=== PATIENT | female | born 1955 | race Caucasian/White ===

== ENCOUNTER 2017-11-03 16:25 | Emergency (ER) | payer BC ==
--- NOTE | 2017-11-03 17:56 | EDM.PDOC ---
ED HPI GENERAL MEDICAL PROBLEM - General Chief Complaint: General Stated Complaint: WITHDRAWALS FROM MEDICATION Time Seen by Provider: 11/03/17 17:16 - History of Present Illness INITIAL COMMENTS - FREE TEXT/NARRATIVE: HISTORY AND PHYSICAL: History of present illness: The patient is a 61-year-old female with a long-standing history of chronic back pain anxiety depression and medication overuse who recently had an admission at [facility] from October 13 to October 18 on their psychiatric unit for major depression and anxiety as well as benzodiazepine abuse and presents to our ER froylan saying that she needs to get medications for her anxiety to get her through the weekend so she can see her provider. The patient is already also been to another ER at [facility] on October 30 and was also not given any medications there. In my discussion with one of the providers at [facility] her discharge medications on October 18 included a closed in a topical Flexeril hydroxyzine and gabapentin and she was not given any tramadol or Xanax that she had come in on. The patient says that she "can't live like this" and that she needs something to help her with her anxiety and she has tried [id number] preparations. She is not having any other systemic complaints of chest pain shortness of breath vomiting or diarrhea. Review of systems: As per history of present illness and below otherwise all systems reviewed and negative. Past medical history: As per history of present illness and as reviewed below otherwise noncontributory. Surgical history: As per history of present illness and as reviewed below otherwise noncontributory. Social history: No reported history of drug or alcohol abuse. Family history: As per history of present illness and as reviewed below otherwise noncontributory. Physical exam: General: Well-developed well-nourished female who is nontoxic and vital signs are reviewed by me. She's not tremulous on my evaluation she does have the rapid speech went she is very adamant at making her point. She is not expressing any suicidal or homicidal ideation but says that she wants help with his anxiety. She has told the nurse and me different stories and even when they went into the room and told her that I knew the information from [facility] there are still some convolution of her story and manipulation of the conversation. HEENT: Atraumatic, normocephalic, negative for conjunctival pallor or scleral icterus, mucous membranes moist, throat clear, neck supple, nontender, trachea midline. Lungs: Clear to auscultation, breath sounds equal bilaterally, chest nontender. Heart: S1S2, regular rate and rhythm on my evaluation, is no overt murmur Abdomen: Soft, nondistended, nontender. NABS Pelvis: Deferred Genitourinary: Deferred. Rectal: Deferred. Extremities: Atraumatic, negative for cords or calf pain. Neurovascular unremarkable. Range of motion without defects or deficits Neuro: Awake, alert, oriented. Cranial nerves II through XII unremarkable. Cerebellum unremarkable. Motor and sensory unremarkable throughout. Exam nonfocal. Gait intact into the ED Diagnostics: [] Therapeutics: [] I did discuss with the patient none prescription approaches to her anxiety and she tells me that she has not connected with counseling at this time. I've offered her Benadryl IM which she declines and they've also talked about melatonin and other vitamin supplements and other non-medication ways to deal with her anxiety but she does not want to listen to my recommendations and says that nothing works. She says that she needs to get medications in order to get her through the weekend and that if I cannot help her she will go to [facility] in [place]. I recommended that she try to get local counseling as this will assist her in long-term management of this anxiety and give her tools for better adaptation and she seems for a closed to these suggestions. Impression: Generalized anxiety with history of same seeking medication refill stable Definitive disposition and diagnosis as appropriate pending reevaluation and review of above. - Related Data Allergies Allergy/AdvReac Type Severity Reaction Status Date / Time No Known Allergies Allergy Verified 11/03/17 17:16 Home Meds: Home Meds Aspirin 81 mg PO DAILY 11/03/17 [History] Escitalopram [Lexapro] 10 mg PO DAILY 11/03/17 [History] Gabapentin [Neurontin] 100 mg PO QID 11/03/17 [History] L.acidoph,Paracasei, B.lactis [Probiotic] 1 tab PO DAILY 11/03/17 [History] Melatonin 3 mg PO BEDTIME PRN 11/03/17 [History] Metoprolol Tartrate 25 mg PO BID 11/03/17 [History] Mirtazapine [Remeron] 15 mg PO BEDTIME 11/03/17 [History] Past Medical History Cardiovascular History: Reports: ND Psychiatric History: Reports: Anxiety - Infectious Disease History Infectious Disease History: Reports: Chicken Pox, Measles, Mumps - Past Surgical History GI Surgical History: Reports: Bariatric Procedure Social & Family History - Tobacco Use Smoking Status *Q: Never Smoker Second Hand Smoke Exposure: No - Alcohol Use Days Per Week of Alcohol Use: 0 - Recreational Drug Use Recreational Drug Use: No ED ROS GENERAL - Review of Systems Review Of Systems: ROS reveals no pertinent complaints other than HPI. ED EXAM, GENERAL - Physical Exam Exam: See Below (See dictation) Course - Vital Signs Last Recorded V/S: Last Vital Signs Temp 36.4 C 11/03/17 17:21 Pulse 104 H 11/03/17 17:21 Resp 20 11/03/17 17:21 BP 142/87 H 11/03/17 17:21 Pulse Ox 94 L 11/03/17 17:21 Departure - Departure Time of Disposition: 17:56 Disposition: Home, Self-Care 01 Condition: Good Clinical Impression: History of anxiety - Discharge Information Referrals: Sebastián Barber MD [Primary Care Provider] - Additional Instructions: The following information is given to patients seen in the emergency department who are being discharged to home. This information is to outline your options for follow-up care. We provide all patients seen in our emergency department with a follow-up referral. The need for follow-up, as well as the timing and circumstances, are variable depending upon the specifics of your emergency department visit. If you don't have a primary care physician on staff, we will provide you with a referral. We always advise you to contact your personal physician following an emergency department visit to inform them of the circumstance of the visit and for follow-up with them and/or the need for any referrals to a consulting specialist. The emergency department will also refer you to a specialist when appropriate. This referral assures that you have the opportunity for followup care with a specialist. All of these measure are taken in an effort to provide you with optimal care, which includes your followup. Under all circumstances we always encourage you to contact your private physician who remains a resource for coordinating your care. When calling for followup care, please make the office aware that this follow-up is from your recent emergency room visit. If for any reason you are refused follow-up, please contact the [facility] emergency department at and ask to speak to the emergency department charge nurse. [facility] Primary care- Internal Medicine and Family [address] [address] Please call and follow-up with your provider in the clinic and try to seek outpatient counseling as we discussed. You may use [id number] Benadryl melatonin and other supplements to help relax you as you choose. Return to ER as needed
[2017-11-03 18:10] VITALS: BP 164/95
== END 2017-11-03 18:10 | disposition home or self-care (01) ==
LOC: MW.ED 16:25
DX: F41.9 Anxiety disorder, unspecified (principal); I25.2 Old myocardial infarction; Z79.82 Long term (current) use of aspirin; Z79.899 Other long term (current) drug therapy; Z98.84 Bariatric surgery status
CPT/HCPCS: 99283